=== PATIENT | female | born 1935 | race Caucasian/White ===

== ENCOUNTER 2017-07-26 10:50 | Emergency (ER) | payer MEDICARE ==
[~2017-07-26] VITALS: Ht 165.1 cm; Wt 55.0 kg
[2017-07-26 10:56] VITALS: BP 218/95; PULSE 71; RESP 16; TEMP 97.7; O2SAT 97
[2017-07-26] MEDS ORDERED: AMOX500C PO (11:08)
[2017-07-26] MEDS ORDERED: ESCI20TA PO (11:08)
[2017-07-26] MEDS ORDERED: PRAD150C PO (11:08)
--- NOTE | 2017-07-26 11:15 | PD ---
HPI Chief Complaint: ENT Complaint Time Seen by Provider: 11:14 Travel History International Travel<30 days: No Contact w/Intl Traveler<30days: No Traveled to known affect area: No History of Present Illness HPI 81-year-old female came to the emergency room for epistaxis from her left nostril. Patient says it has been going on for past 3 days. She's been on amoxicillin for sinus infection but the epistaxis is not getting result. Patient has history of anxiety. She is from [place] and is here for 6 months. She does not have a primary care here. When patient initially came in her blood pressure was 225 systolic. Patient says that she's not been diagnosed with hypertension but anxiety and hence she is not on any antihypertensives. There was no obvious anterior bleeding that could be seen where I was talking to the patient but patient says that when she stands up and leans her head forward a little bit the bleeding comes out from the front of her nose. Most of the other time it goes to the back of her throat. Yesterday she blew her nose and a large clot came out. Patient is on Pradaxa [facility] Past Medical History Narrative Medical List of her past medical, surgical, social and family history is reviewed from the nursing note. Atrial Fibrillation: Yes Anxiety: Yes Influenza Vaccination: Yes ?: Not Past Surgical History Eye Surgery: Yes (cataract) Tonsillectomy: Yes Social History Alcohol Use: Yes (5 glasses wine per week) Tobacco Use: No Substance Use: No Allergies-Medications (Allergen,Severity, Reaction): Coded Allergies: No Known Allergies (Unverified , 07/28/17) Comments No known drug allergies. Reported Meds & Prescriptions Reported Meds & Active Scripts Active Reported Pradaxa (Dabigatran) 150 Mg Cap 150 Mg PO BID Escitalopram (Escitalopram Oxalate) 20 Mg Tab 20 Mg PO DAILY Narrative Medication List of her home medications reviewed from the nursing note. Review of Systems Except as stated in HPI: all other systems reviewed are Neg HENT: Positive: Nosebleed Physical Exam Narrative GENERAL: Awake, alert, anxious SKIN: Focused skin assessment warm/dry. HEAD: Atraumatic. Normocephalic. EYES: Pupils equal and round. No scleral icterus. No injection or drainage. ENT: No nasal bleeding or discharge. Mucous membranes pink and moist. Left nostril some dried blood anteriorly. Back of her throat there is a trail of blood mixed with mucus NECK: Trachea midline. No JVD. CARDIOVASCULAR: Regular rate and rhythm. No murmur appreciated. RESPIRATORY: No accessory muscle use. Clear to auscultation. Breath sounds equal bilaterally. GASTROINTESTINAL: Abdomen soft, non-tender, nondistended. Hepatic and splenic margins not palpable. MUSCULOSKELETAL: No obvious deformities. No clubbing. No cyanosis. No edema. NEUROLOGICAL: Awake and alert. No obvious cranial nerve deficits. Motor grossly within normal limits. Normal speech. PSYCHIATRIC: Appropriate mood and affect; insight and judgment normal. Data Data Last Documented VS Orders Orders Phenylephrine 0.5% Hugo Spr (Neosynephrin (07/26/17 11:30) Lidocaine 2% Jelly (Xylocaine 2% Jelly) (07/26/17 11:45) [facility] Medical Decision Making Medical Screen Exam Complete: Yes Emergency Medical Condition: Yes Medical Record Reviewed: Yes Differential Diagnosis Anterior epistaxis, posterior epistaxis Narrative Course 12:32 PM nasal packing was done. Patient tolerated the procedure well. Please refer to my procedure note for that. She'll be discharged home with instructions. Currently the nurses can repeat the blood pressure. As long as the blood pressures trending down I will not start her on any medications. She has been recommended to keep a diary of her blood pressure recordings and take it with her to primary care physician. Procedures Procedure Narrative Nasal packing: Patient was asked to blow all the blood clot of her nostril. 2 large blood clots came out. Nose was pain joint with minimal pressure for 5 minutes. Squirts of Rigo-Synephrine 0.5% nasal spray was given. The nose was asked to be pinched again. Lidocaine jelly was inserted into the nostril and soon after Rhino Rocket was inserted and the balloon inflated with 7 mL of air. Patient tolerated this procedure well. EKG Prior to Arrival: No Diagnosis Primary Impression: Epistaxis Additional Impression: Hypertension Qualified Codes: I10 - Essential (primary) hypertension Referrals: [facility] 3 days Additional Instructions: Please return to the ER to get the packing taken out in 72 hours. Packing slips out on its own then wait and see if the bleeding still continues. If you continue to bleed then you need to return to the ER. Please keep a diary of your blood pressure recordings daily morning afternoon and night. Take it with you when you go to see her primary care. You may require to be started on blood pressure medications. Disposition: 01 DISCHARGE HOME Condition: Stable Louie Veliz MD Jul 26, 2017 11:15
[2017-07-26] MEDS ORDERED: PHENYLEPHRINE HCL 0.5% NASAL SPRAY 15 ML BTL NASAL ONE (11:30)
[2017-07-26] MEDS ORDERED: LIDOCAINE HCL 2% JELLY 5 ML SYRINGE TOPICAL ONE (11:45)
[2017-07-26 12:13] VITALS: BP 206/78; PULSE 55; RESP 19; O2SAT 96
[2017-07-26 12:52] VITALS: BP 173/73
== END 2017-07-26 12:58 | disposition home or self-care (01) ==
LOC: PHED 10:50
DX: R04.0 Epistaxis (principal); I10 Essential (primary) hypertension; I48.91 Unspecified atrial fibrillation; Z79.01 Long term (current) use of anticoagulants
CPT/HCPCS: 30901; 30905; 99281

== ENCOUNTER 2017-07-26 13:48 | Emergency (ER) | payer MEDICARE ==
[~2017-07-26] VITALS: Ht 165.1 cm; Wt 55.0 kg
[~2017-07-26 13:48] MED LIST: AMOX500C PO; ESCI20TA PO; PRAD150C PO
[2017-07-26 13:50] VITALS: BP 189/81; PULSE 90; RESP 16; TEMP 97.4; O2SAT 96
[2017-07-26] MEDS ORDERED: LIDOCAINE HCL 2% JELLY 5 ML SYRINGE TOPICAL ONE (14:45)
--- NOTE | 2017-07-26 14:54 | PD ---
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 She had a nasal packing device put in 2 hours ago in this emergency room by me and is back again because the packing came out. The bleeding is well controlled at this point but she blew her nose and noticed that there was still some blood. [facility] Past Medical History Narrative Medical List of her past medical, surgical, social and family history is reviewed from the nursing note. Atrial Fibrillation: Yes Anxiety: Yes Past Surgical History Eye Surgery: Yes (cataract) Tonsillectomy: Yes Social History Alcohol Use: Yes (5 glasses wine per week) Tobacco Use: No Substance Use: No Allergies-Medications (Allergen,Severity, Reaction): Coded Allergies: No Known Allergies (Unverified , 07/28/17) Comments No known drug allergies. Reported Meds & Prescriptions Reported Meds & Active Scripts Active Reported Pradaxa (Dabigatran) 150 Mg Cap 150 Mg PO BID Escitalopram (Escitalopram Oxalate) 20 Mg Tab 20 Mg PO DAILY Narrative Medication List of her home medications reviewed from the nursing note. Review of Systems Except as stated in HPI: all other systems reviewed are Neg HENT: Positive: Nosebleed Physical Exam Narrative GENERAL: Awake, alert, anxious SKIN: Focused skin assessment warm/dry. HEAD: Atraumatic. Normocephalic. EYES: Pupils equal and round. No scleral icterus. No injection or drainage. ENT: No nasal bleeding or discharge. Mucous membranes pink and moist. Left nosebleed NECK: Trachea midline. No JVD. CARDIOVASCULAR: Regular rate and rhythm. No murmur appreciated. RESPIRATORY: No accessory muscle use. Clear to auscultation. Breath sounds equal bilaterally. GASTROINTESTINAL: Abdomen soft, non-tender, nondistended. Hepatic and splenic margins not palpable. MUSCULOSKELETAL: No obvious deformities. No clubbing. No cyanosis. No edema. NEUROLOGICAL: Awake and alert. No obvious cranial nerve deficits. Motor grossly within normal limits. Normal speech. PSYCHIATRIC: Appropriate mood and affect; insight and judgment normal. Data Data Last Documented VS Orders Orders Lidocaine 2% Jelly (Xylocaine 2% Jelly) (07/26/17 14:45) Ed Discharge Order (07/26/17 14:54) [facility] Medical Decision Making Medical Screen Exam Complete: Yes Emergency Medical Condition: Yes Medical Record Reviewed: Yes Differential Diagnosis Nasal packing device out, epistaxis Narrative Course 2:52 PM I just inserted a longer Rhino Rocket which is for posterior bleeding as well. Procedures Procedure Narrative Rhino Rocket: 2% lidocaine jelly was inserted into the nostril for anesthesia. A longer Rhino Rocket that's a need for posterior epistaxis was inserted. Balloon was inflated. Patient tolerated the procedure well. EKG Prior to Arrival: No Diagnosis Primary Impression: Epistaxis Disposition: 01 DISCHARGE HOME Condition: Stable Louie Veliz MD Jul 26, 2017 14:54
== END 2017-07-26 15:20 | disposition home or self-care (01) ==
LOC: PHED 13:48
DX: R04.0 Epistaxis (principal); I48.91 Unspecified atrial fibrillation
CPT/HCPCS: 30905; 99281

== ENCOUNTER 2017-07-28 13:04 | Emergency (ER) | payer MEDICARE, OTHER ==
[~2017-07-28] VITALS: Ht 152.4 cm; Wt 53.9 kg
[2017-07-28 13:12] VITALS: BP 154/70; PULSE 91; RESP 16; TEMP 97.7; O2SAT 96
--- NOTE | 2017-07-28 14:42 | PD ---
HPI Chief Complaint: ENT Complaint Time Seen by Provider: 14:38 Travel History International Travel<30 days: No Contact w/Intl Traveler<30days: No Traveled to known affect area: No History of Present Illness HPI 82-year-old female on Pradaxa here for Rhino Rocket removal. She was evaluated on 07/26/17 for epistaxis. Rhino Rocket was placed. She was instructed to return in 72 hours for removal. She denies fever, headache, bleeding from the nares. She has no medical complaint [facility] Past Medical History Atrial Fibrillation: Yes Anxiety: Yes Tetanus Vaccination: Unknown Influenza Vaccination: Yes Past Surgical History Eye Surgery: Yes (cataract) Tonsillectomy: Yes Social History Alcohol Use: Yes (5 glasses wine per week) Tobacco Use: No Substance Use: No Allergies-Medications (Allergen,Severity, Reaction): Coded Allergies: No Known Allergies (Unverified , 07/28/17) Reported Meds & Prescriptions Reported Meds & Active Scripts Active Reported Pradaxa (Dabigatran) 150 Mg Cap 150 Mg PO BID Escitalopram (Escitalopram Oxalate) 20 Mg Tab 20 Mg PO DAILY Review of Systems Except as stated in HPI: all other systems reviewed are Neg General / Constitutional: No: Fever Physical Exam Narrative GENERAL: Alert well-appearing female. SKIN: Warm and dry. HEAD: Normocephalic. No sinus tenderness. EYES: No scleral icterus. No injection or drainage. NOSE: Rhinorrhea rhonchi in place to left nare. NECK: Supple, trachea midline. No JVD or lymphadenopathy. Data Data Last Documented VS Vital Signs Date Time Temp Pulse Resp B/P (MAP) Pulse Ox O2 Delivery O2 Flow Rate FiO2 07/28/17 13:12 97.7 91 16 154/70 (98) 96 MDM Medical Decision Making Medical Screen Exam Complete: Yes Emergency Medical Condition: Yes Differential Diagnosis Rhino Rocket removal, epistaxis, sinusitis Narrative Course 82-year-old female here for Rhino Rocket removal. The Rhino Rocket was removed from the left naris. No active bleeding. Patient was observed in the emergency department. No rebleed. Diagnosis Primary Impression: Encounter for removal of nasal packing Referrals: Primary Care Physician Additional Instructions: Do not blow the nose. Do not stick anything in the nose. If the area begins to bleed home firm pressure for 10-15 minutes If the bleeding does not stop with firm pressure return to emergency department Disposition: 01 DISCHARGE HOME Condition: Stable Maribel Decker Jul 28, 2017 14:42
== END 2017-07-28 14:44 | disposition home or self-care (01) ==
LOC: PHEFT 13:04
DX: Z09 Encounter for follow-up examination after completed treatment for conditions other than malignant neoplasm (principal); R04.0 Epistaxis; I48.91 Unspecified atrial fibrillation; F41.9 Anxiety disorder, unspecified; Z79.01 Long term (current) use of anticoagulants
CPT/HCPCS: 99282